=== PATIENT | male | born 1995 | race African-American/Black ===

== ENCOUNTER 2018-02-16 19:25 | Emergency (ER) | payer OTHER ==
[~2018-02-16] VITALS: Ht 177.8 cm; Wt 79.5 kg
[2018-02-16 20:51] VITALS: BP 134/84
[2018-02-16] MEDS ORDERED: IBUPROFEN 800 MG TABLET PO ONE (21:00)
== END 2018-02-16 21:39 | disposition home or self-care (01) ==
LOC: EMS 19:26
DX: M79.644 Pain in right finger(s) (principal); F17.210 Nicotine dependence, cigarettes, uncomplicated; F12.10 Cannabis abuse, uncomplicated
CPT/HCPCS: 99284; 99406